=== PATIENT | male | born 1955 | race Caucasian/White ===

== ENCOUNTER 2019-05-01 12:55 | Emergency (ER) | payer MEDICARE, MEDICAID ==
[2019-05-01 14:15] VITALS: BP 131/89
[2019-05-01 14:48] LABS: ANION GAP 12.7; CHLORIDE,CL 107 mmol/L (101-111); SODIUM,NA 138 mmol/L (135-145)
--- NOTE | 2019-05-01 16:06 | EDM.PDOC ---
"Scribed by Ne Coleman 05/01/19 [id number] for Todd Porter MD ED HPI GENERAL MEDICAL PROBLEM - General Chief Complaint: Neurological Problem Stated Complaint: SEIZURES? Time Seen by Provider: 05/01/19 14:09 Source of Information: Reports: Patient, RN, RN Notes Reviewed History Limitations: Reports: No Limitations - History of Present Illness INITIAL COMMENTS - FREE TEXT/NARRATIVE: Patient presented to ER by POV from a Long Term with complaint of possible seizure activity witnessed by care staff during meal. Patient not able to provide history. Staff reports that the patient suddenly became rigid and pale, covered in sweat and his eyes rolled back in his head for several seconds. It is unclear if the pt lost consciousness or not during the episode. Following the episode they found the patient somnolent with decreased level of activity. Denied any choking or aspiration of food. Patient has no history of seizure. Denies fever, chills, cough or any other symptoms. Onset: Today Duration: Resolved Prior to Arrival Severity: Moderate Improves with: Reports: None Worsens with: Reports: None Associated Symptoms: Reports: No Other Symptoms - Related Data Allergies Allergy/AdvReac Type Severity Reaction Status Date / Time No Known Allergies Allergy Verified 05/01/19 14:10 Home Meds: Home Meds Acetaminophen [Tylenol] 650 mg PO Q4H PRN #0 tablet 04/10/16 [Rx] Albuterol Sulfate 0.63 mg IH PRN 05/01/19 [History] Albuterol/Ipratropium [DuoNeb 3.0-0.5 MG/3 ML] 3 ml NEB TID 05/01/19 [History] Budesonide [Pulmicort] 0.5 mg NEB BID 05/01/19 [History] Fexofenadine [Keiry] 60 mg PO DAILY 05/01/19 [History] Linaclotide [Linzess] 290 mcg PO DAILY 05/01/19 [History] Losartan [Cozaar] 50 mg PO DAILY 05/01/19 [History] Metoprolol Tartrate 25 mg PO BID 05/01/19 [History] Omeprazole 20 mg PO DAILY 05/01/19 [History] Oxymetazoline HCl [Nasal [place]] 1 spray NS DAILY 05/01/19 [History] Potassium Chloride 40 meq PO DAILY 05/01/19 [History] Pregabalin [Lyrica] 150 mg PO BID 05/01/19 [History] Sennosides/Docusate Sodium [Senna-S] 1 tab PO BID 05/01/19 [History] Sertraline [Zoloft] 25 mg PO BEDTIME 05/01/19 [History] Simethicone 80 mg PO QID 05/01/19 [History] Past Medical History Other HEENT History: wears glasses Cardiovascular History: Reports: Hypertension Other Cardiovascular History: heart turned in chest Respiratory History: Reports: Other (See Below) Other Respiratory History: pneumonia Gastrointestinal History: Reports: Chronic Constipation, GERD, Other (See Below) Other Gastrointestinal History: Mg colon Other Genitourinary History: urinary retention Other Neuro History: moderate mental handicap Psychiatric History: Reports: Schizophrenia - Past Surgical History Musculoskeletal Surgical History: Reports: Other (See Below) Social & Family History - Family History Family Medical History: Unobtainable ED ROS GENERAL - Review of Systems Review Of Systems: ROS reveals no pertinent complaints other than HPI. ED EXAM, GENERAL - Physical Exam Exam: See Below Exam Limited By: Physical Impairment General Appearance: Alert, No Apparent Distress Eye Exam: Right Eye: Abnormal EOM (chronic/stable) Ears: Normal External Exam, Normal Canal, Hearing Grossly Normal, Normal TMs Nose: Normal Inspection, Normal Mucosa, No Blood Throat/Mouth: Normal Inspection, Normal Lips, Normal Teeth, Normal Gums, Normal Oropharynx, Normal Voice, No Airway Compromise, Other (No evidence of tongue biting) Head: Atraumatic, Normocephalic Neck: Normal Inspection, Supple, Non-Tender, Full Range of Motion Respiratory/Chest: No Respiratory Distress, Lungs Clear, No Accessory Muscle Use , Chest Non-Tender, Decreased Breath Sounds. No: Crackles, Rales, Rhonchi, Wheezing, Stridor Cardiovascular: Regular Rate, Rhythm, No Edema GI/Abdominal: Normal Bowel Sounds, Soft, Non-Tender, No Distention (Male) Exam: Deferred Rectal (Males) Exam: Deferred Back Exam: Normal Inspection Extremities: Normal Inspection, Normal Range of Motion, Non-Tender, Normal Capillary Refill, No Pedal Edema Neurological: Alert, No Motor/Sensory Deficits, Other (at baseline per caregiver , and consistent with old records) Psychiatric: Normal Affect, Normal Mood Skin Exam: Warm, Dry, Intact, Normal Color, No Rash Course - Vital Signs Last Recorded V/S: Last Vital Signs Temp 97.3 F 05/01/19 13:30 Pulse 74 05/01/19 13:30 Resp 20 05/01/19 13:30 BP 131/89 05/01/19 13:30 Pulse Ox 96 05/01/19 13:30 - Orders/Labs/Meds Orders: Active Orders 24 hr Category Date Time Status Chest 1V Frontal [CR] Stat Exams 05/01/19 14:37 Taken Labs: Laboratory Tests 05/01/19 05/01/19 05/01/19 Range/Units 14:23 14:23 15:43 WBC 7.1 (5.0-10.0) 10^3/uL RBC 4.95 (4.6-6.2) 10^6/uL Hgb 15.4 D (14.0-18.0) g/dL Hct 45.1 (40.0-54.0) % MCV 91.1 (80-100) fL MCH 31.1 (27.0-34.0) pg MCHC 34.1 (33.0-35.0) g/dL Plt Count 190 (150-450) 10^3/uL Neut % (Auto) 64.8 (42.2-75.2) % Lymph % (Auto) 19.9 L (20.5-50.1) % Bland % (Auto) 10.1 H (2-8) % Eos % (Auto) 4.8 H (1.0-3.0) % Baso % (Auto) 0.4 (0.0-1.0) % Sodium 138 (135-145) mmol/L Potassium 4.7 (3.6-5.0) mmol/L Chloride 107 (101-111) mmol/L Carbon Dioxide 23.0 (21.0-31.0) mmol/L Anion Gap 12.7 BUN 25 H (7-18) mg/dL Creatinine 1.1 (0.6-1.3) mg/dL Est Cr Clr Drug Dosing 72.39 mL/min Estimated GFR (MDRD) > 60 BUN/Creatinine Ratio 22.72 Glucose 83 (74-105) mg/dL Calcium 8.8 (8.4-10.2) mg/dl Magnesium 2.0 (1.8-2.5) mg/dL Total Bilirubin 0.5 (0.2-1.0) mg/dL AST 18 (10-42) IU/L ALT 16 (10-60) IU/L Alkaline Phosphatase 106 (42-121) IU/L Lactate Dehydrogenase 113 (91-180) IU/L Creatine Kinase 49 (26-174) IU/L Total Protein 6.8 (6.7-8.2) g/dl Albumin 3.8 (3.2-5.5) g/dl Globulin 3.0 Albumin/Globulin Ratio 1.27 Urine Color Yellow (YELLOW) Urine Appearance Clear (CLEAR) Urine pH 5.5 (5.0-9.0) Ur Specific [place] 1.020 (1.005-1.030) Urine Protein Negative (NEGATIVE) Urine Glucose (UA) Negative (NEGATIVE) Urine Ketones Negative (NEGATIVE) Urine Occult Blood Negative (NEGATIVE) Urine Nitrite Negative (NEGATIVE) Urine Bilirubin Negative (NEGATIVE) Urine Urobilinogen 0.2 (0.2-1.0) mg/dL Ur Leukocyte Esterase Negative (NEGATIVE) - Radiology Interpretation Free Text/Narrative:: [facility] Final Radiology Report Call: [phone] assistance Online chat: [email or web address] Name: FIORELLA MCCARTNEY Age: 63Years M Date: 05/01/2019 SSN: -- : 1955 Study: XR CHEST 1 VIEW FRONTAL Requesting Physician: TODD PORTER Images: 1 Addl Studies: Provided Clinical History: Contrast: Contrast Medium: Contrast Amount: Contrast Method: Page 1 of 2 EXAM: XR Chest, 1 View EXAM DATE/TIME: 05/01/2019 2:48 PM CLINICAL HISTORY: 63 years old, male; Signs and symptoms; Cough and other: Chronic dysphagia, poss aspiration TECHNIQUE: Imaging protocol: XR of the chest, 1 view. COMPARISON: No relevant prior studies available. FINDINGS: Lungs: Increased interstitial lung markings suggesting edema, infection or fibrotic changes. Pleural space: Unremarkable. No pleural effusion. No pneumothorax. Heart/Mediastinum: Cardiomegaly Diaphragm: Elevation of the right hemidiaphragm with dilated loops of bowel. Bones/joints: Unremarkable. IMPRESSION: 1. Elevation of the right hemidiaphragm with dilated loops of large bowel. Consider dedicated exam of the abdomen. 2. Increased interstitial lung markings suggesting edema, infection or fibrotic changes. 3. Cardiomegaly Thank you for allowing us to participate in the care of your patient. FIORELLA MCCARTNEY | Final Radiology Report CONFIDENTIALITY STATEMENT This report is intended only for use by the referring physician, and only in accordance with law. If you received this in error, call [phone]. Page 2 of 2 Dictated and Authenticated by: Billy Conn MD 05/01/2019 3:35 PM Central Time ([place] & [place]) *Abnormal abd. findings above are unchanged in comparison to [address] abd/ pelvis and were noted as chronic in 2016 as well. Pt has no abdominal complaints or symptoms. Departure - Departure Time of Disposition: 16:01 Disposition: Home, Self-Care 01 Condition: Good Clinical Impression: Tonic seizure - Discharge Information *PRESCRIPTION DRUG MONITORING PROGRAM REVIEWED*: No *COPY OF PRESCRIPTION DRUG MONITORING REPORT IN PATIENT SUSU: No Instructions: Coping With Non-Epileptic Seizures Referrals: PCP,None [Primary Care Provider] - Forms: ED Department Discharge Additional Instructions: Follow up in clinic with your primary doctor this week. Seizure precautions at the retirement until further evaluation. - My Orders Last 24 Hours: My Active Orders 05/01/19 14:37 Chest 1V Frontal [CR] Stat - Assessment/Plan Last 24 Hours: My Active Orders 05/01/19 14:37 Chest 1V Frontal [CR] Stat I have read and agree with the documentation that has been completed regarding this visit. By signing this record, I attest that the documentation was completed in my physical presence and is an accurate record of the encounter."
== END 2019-05-01 16:11 | disposition home or self-care (01) ==
LOC: DL.ED 12:55
DX: G40.409 Other generalized epilepsy and epileptic syndromes, not intractable, without status epilepticus (principal); I10 Essential (primary) hypertension; K21.9 Gastro-esophageal reflux disease without esophagitis; Z79.899 Other long term (current) drug therapy
CPT/HCPCS: 36415; 71045; 80053; 81003; 82550; 83615; 83735; 85025; 99285-25

== ENCOUNTER 2019-10-25 07:45 | Emergency (ER) | payer MEDICARE, MEDICAID ==
--- NOTE | 2019-10-25 07:56 | EDM.PDOC ---
ED HPI GENERAL MEDICAL PROBLEM - General Chief Complaint: General Stated Complaint: FELL Time Seen by Provider: 10/25/19 07:55 Source of Information: Reports: Patient, Family, Old Records, RN, RN Notes Reviewed History Limitations: Reports: No Limitations - History of Present Illness INITIAL COMMENTS - FREE TEXT/NARRATIVE: Pt presents to ER by POV with report that he fell in his room to the floor and hit his face. Pt has c/o an abrasion to the forehead, and nose with laceration. Denies LOC, neck pain, or any other injury. Pt does not take any blood thinners or aspirin. Last Tetanus Vaccine was 2017. Onset: Sudden Duration: Constant Location: Reports: Face Quality: Reports: Ache Severity: Moderate Improves with: Reports: None Worsens with: Reports: None Associated Symptoms: Reports: No Other Symptoms - Related Data Allergies Allergy/AdvReac Type Severity Reaction Status Date / Time No Known Allergies Allergy Verified 10/10/19 18:06 Home Meds: Home Meds Acetaminophen [Tylenol] 650 mg PO Q4H PRN #0 tablet 04/10/16 [Rx] Albuterol Sulfate 0.63 mg IH .PRN PRN 05/01/19 [History] Albuterol/Ipratropium [DuoNeb 3.0-0.5 MG/3 ML] 3 ml NEB TID 05/01/19 [History] Budesonide [Pulmicort] 0.5 mg NEB BID 05/01/19 [History] Fexofenadine [Keiry] 60 mg PO DAILY 05/01/19 [History] Linaclotide [Linzess] 290 mg PO DAILY 05/01/19 [History] Losartan [Cozaar] 25 mg PO DAILY 05/01/19 [History] Metoprolol Tartrate 25 mg PO BID 05/01/19 [History] Omeprazole 20 mg PO DAILY 05/01/19 [History] Oxymetazoline HCl [Nasal [place]] 1 spray NS DAILY 05/01/19 [History] Potassium Chloride 40 meq PO DAILY 05/01/19 [History] Pregabalin [Lyrica] 300 mg PO BID 05/01/19 [History] Sennosides/Docusate Sodium [Senna-S] 1 tab PO BID 05/01/19 [History] Sertraline [Zoloft] 25 mg PO BEDTIME 05/01/19 [History] Simethicone 80 mg PO QID 05/01/19 [History] Nystatin [Nystatin Crm] 1 applic TOP DAILY PRN 10/10/19 [History] Propylene Glycol/PEG 400/Pf [Systane Ultra 0.4-0.3% Eye Drp] 1 each EYEBOTH BID 10/10/19 [History] QUEtiapine [SEROquel] 50 mg PO BID 10/10/19 [History] Past Medical History HEENT History: Reports: Impaired Vision Other HEENT History: wears glasses Cardiovascular History: Reports: Hypertension Other Cardiovascular History: heart turned in chest Respiratory History: Reports: Other (See Below) Other Respiratory History: pneumonia Gastrointestinal History: Reports: Chronic Constipation, GERD, Other (See Below) Other Gastrointestinal History: Mg colon Other Genitourinary History: urinary retention Other Neuro History: moderate mental handicap Psychiatric History: Reports: Schizophrenia Endocrine/Metabolic History: Reports: None Hematologic History: Reports: None Immunologic History: Reports: None Oncologic (Cancer) History: Reports: None Dermatologic History: Reports: None Other Dermatologic History: mottling to left leg, some mottling normal for him - Infectious Disease History Infectious Disease History: Reports: None - Past Surgical History Musculoskeletal Surgical History: Reports: Other (See Below) Social & Family History - Family History Family Medical History: Unobtainable - Tobacco Use Smoking Status *Q: Former Smoker - Caffeine Use Caffeine Use: Reports: Coffee, Soda, Tea - Living Situation & Occupation Living situation: Reports: Single, Assisted Living Occupation: Disabled ED ROS GENERAL - Review of Systems Review Of Systems: Comprehensive ROS is negative, except as noted in HPI. ED EXAM, GENERAL - Physical Exam Exam: See Below Exam Limited By: No Limitations General Appearance: Alert, No Apparent Distress, Thin, Other (Chronically ill appearing) Eye Exam: Bilateral Eye: EOMI, Normal Inspection, PERRL Ears: Normal External Exam, Hearing Grossly Normal Nose: Nasal Tenderness, Other (Nose abrasion/lac. with mild epistaxis, deformity (unknown if old or acute).) Throat/Mouth: Normal Inspection, Normal Lips, Normal Teeth, Normal Gums, Normal Oropharynx, Normal Voice, No Airway Compromise Head: Atraumatic, Normocephalic Neck: Normal Inspection, Supple, Non-Tender, Full Range of Motion Respiratory/Chest: No Respiratory Distress, Lungs Clear, No Accessory Muscle Use , Chest Non-Tender, Decreased Breath Sounds Cardiovascular: Normal Peripheral Pulses, Regular Rate, Rhythm, No Edema GI/Abdominal: Normal Bowel Sounds, Soft, Non-Tender, No Organomegaly, No Distention, No Abnormal Bruit, No Mass Back Exam: Normal Inspection, Full Range of Motion Extremities: Normal Inspection, Normal Range of Motion, Non-Tender, Normal Capillary Refill, No Pedal Edema Neurological: Alert, Other (Chronic dystonia with no acute neuro. deficits.) Psychiatric: Normal Mood Skin Exam: Warm, Dry, Normal Color Course - Vital Signs Last Recorded V/S: Last Vital Signs Temp 96.6 F 10/25/19 07:52 Pulse 57 L 10/25/19 07:52 Resp 16 10/25/19 07:52 BP 91/66 10/25/19 07:52 Pulse Ox 96 10/25/19 07:52 - Orders/Labs/Meds Orders: Active Orders 24 hr Category Date Time Status Max Facial Sinus wo Cont [CT] Stat Exams 10/25/19 08:09 Taken Steri Strips Application [OM.PC] Routine Oth 10/25/19 08:15 Ordered Meds: Medications Discontinued Medications Generic Name Dose Route Start Last Admin Trade Name Freq PRN Reason Stop Dose Admin Amoxicillin/Clavulanate Potassium 1 tab 10/25/19 08:16 10/25/19 08:27 Augmentin 875 Mg/125 Mg PO 10/25/19 08:17 1 tab ONETIME ONE Administration Oxymetazoline HCl 1 ml 10/25/19 08:17 10/25/19 08:27 Afrin Original 0.05% Nasal [place] ANGELO 10/25/19 08:18 1 ml ONETIME ONE Administration - Radiology Interpretation Free Text/Narrative:: CT Max/Facial: Comminuted displaced nasal bone fracture with Rt lat. sinus wall involvement per Rad. report. - Re-Assessments/Exams Free Text/Narrative Re-Assessment/Exam: 10/25/19 08:29 Nose abrasion/lac. cleansed and steri-strips applied by RN. ENT consulted via [facility] One Call, CT image pushed to [facility] PACs. Pt given phone number to [facility] for f/u. Departure - Departure Time of Disposition: 08:44 Disposition: Home, Self-Care 01 Condition: Fair Clinical Impression: Nasal bone fractures Qualifiers: Encounter type: initial encounter Fracture type: open Qualified Code(s): S02.2XXB - Fracture of nasal bones, initial encounter for open fracture Fall as cause of accidental injury at home as place of occurrence Qualifiers: Encounter type: initial encounter Qualified Code(s): W19.XXXA - Unspecified fall, initial encounter; Y92.009 - Unspecified place in unspecified non- institutional (private) residence as the place of occurrence of the external cause Laceration of nose Qualifiers: Encounter type: initial encounter Qualified Code(s): S01.21XA - Laceration without foreign body of nose, initial encounter - Discharge Information *PRESCRIPTION DRUG MONITORING PROGRAM REVIEWED*: No *COPY OF PRESCRIPTION DRUG MONITORING REPORT IN PATIENT SUSU: No Instructions: Nasal Fracture, Sterile Tape Wound Care Forms: ED Department Discharge Additional Instructions: Rx: Augmentin 875mg Rx: Zofran 4mg Do not wipe, blow, rub, pick, or scratch at nose for the next 10 days. Call [phone] today to schedule an appointment with at the [facility] for evaluation and treatment of your nose fracture. - My Orders Last 24 Hours: My Active Orders 10/25/19 08:09 Max Facial Sinus wo Cont [CT] Stat 10/25/19 08:15 Steri Strips Application [OM.PC] Routine - Assessment/Plan Last 24 Hours: My Active Orders 10/25/19 08:09 Max Facial Sinus wo Cont [CT] Stat 10/25/19 08:15 Steri Strips Application [OM.PC] Routine
[2019-10-25 07:57] VITALS: BP 91/66; PULSE 57
[2019-10-25] MEDS ORDERED: Amoxicillin/Clavulanate K 875-125 MG Tab PO ONE (08:16)
[2019-10-25] MEDS ORDERED: Oxymetazoline 0.05% Nasal Spray 15 ML Bottle NAS ONE (08:17)
--- NOTE | 2019-10-25 08:56 | CT ---
EXAMINATION: Max Facial Sinus wo Cont SEX: Male AGE: 64 years CLINICAL HISTORY: 64-year-old male with clinical "dystonia" who fell out of bed injuring his face. (nose injury) Scan technique: Volume acquisition of data emergency unenhanced CT scan of the facial bones obtained with the patient lying supine on the Siemens multislice scanner [place], [place]. All data archived in the PACS system for storage, reformatting axial/sagittal/coronal planes and study (bone/soft tissue windows). Interpretation: 1. Badly comminuted fracture nasal bones with marked deviation to the left of midline. (Adjacent subcutaneous emphysema) 2. Irregular nasal septum, asymmetric swelling nasal turbinates on the right with soft tissue that extends through the medial wall of the right maxillary sinus (ipsilateral dependent air-fluid level). No frontal bone fracture or intracranial air. No orbital fractures and the anterior maxillary spine is intact. No retrobulbar hematoma or ocular muscle entrapment. 3. Edentulous patient. TMJs unremarkable. 4. Frontal, sphenoid, left ethmoid and maxillary sinuses clear. Symmetric pneumatization of the mastoid sinuses. 5. No foreign bodies. 6. No basal skull fractures. 7. No fracture or dislocation first 3 cervical vertebra. 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 CONCLUSION: Abnormal. Comminuted nasal bone fractures.
== END 2019-10-25 08:58 | disposition home or self-care (01) ==
LOC: DL.ED 07:45
DX: S02.2XXB Fracture of nasal bones, initial encounter for open fracture (principal); S01.21XA Laceration without foreign body of nose, initial encounter; I10 Essential (primary) hypertension; K21.9 Gastro-esophageal reflux disease without esophagitis; Z87.891 Personal history of nicotine dependence; Z79.899 Other long term (current) drug therapy; W01.10XA Fall on same level from slipping, tripping and stumbling with subsequent striking against unspecified object, initial encounter; Y92.009 Unspecified place in unspecified non-institutional (private) residence as the place of occurrence of the external cause
CPT/HCPCS: 70486; 99283; A9270

== ENCOUNTER 2020-11-24 11:48 | Emergency (ER) | payer MEDICARE, MEDICAID | END 2020-11-24 11:50 | disposition left against medical advice (07) | LOC: DL.ED 11:48 | DX: Z53.21 Procedure and treatment not carried out due to patient leaving prior to being seen by health care provider (principal) ==

== ENCOUNTER 2020-11-28 09:02 | Emergency (ER) | payer MEDICARE, MEDICAID ==
--- NOTE | 2020-11-28 09:05 | EDM.PDOC ---
<Jareth Porter - Last Filed: 11/28/20 09:04> ED HPI GENERAL MEDICAL PROBLEM - General Chief Complaint: Respiratory Problem Stated Complaint: AMBULANCE Time Seen by Provider: 11/28/20 09:04 Source of Information: Reports: Patient, Shelter Records, Old Records, RN History Limitations: Reports: No Limitations - Related Data Allergies Allergy/AdvReac Type Severity Reaction Status Date / Time No Known Allergies Allergy Verified 11/28/20 09:07 Home Meds: Home Meds Acetaminophen [Tylenol] 650 mg PO Q4H PRN #0 tablet 04/10/16 [Rx] Albuterol Sulfate 0.63 mg IH .PRN PRN 05/01/19 [History] Albuterol/Ipratropium [DuoNeb 3.0-0.5 MG/3 ML] 3 ml NEB TID 05/01/19 [History] Budesonide [Pulmicort] 0.5 mg NEB BID 05/01/19 [History] Fexofenadine [Keiry] 60 mg PO DAILY 05/01/19 [History] Linaclotide [Linzess] 290 mg PO DAILY 05/01/19 [History] Losartan [Cozaar] 25 mg PO DAILY 05/01/19 [History] Metoprolol Tartrate 25 mg PO BID 05/01/19 [History] Omeprazole 20 mg PO DAILY 05/01/19 [History] Oxymetazoline HCl [Nasal [place]] 1 spray NS DAILY 05/01/19 [History] Potassium Chloride 40 meq PO DAILY 05/01/19 [History] Pregabalin [Lyrica] 300 mg PO BID 05/01/19 [History] Sennosides/Docusate Sodium [Senna-S] 1 tab PO BID 05/01/19 [History] Sertraline [Zoloft] 25 mg PO BEDTIME 05/01/19 [History] Simethicone 80 mg PO QID 05/01/19 [History] Nystatin [Nystatin Crm] 1 applic TOP DAILY PRN 10/10/19 [History] Propylene Glycol/PEG 400/Pf [Systane Ultra 0.4-0.3% Eye Drp] 1 each EYEBOTH BID 10/10/19 [History] QUEtiapine [SEROquel] 50 mg PO BID 11/18/19 [History] Past Medical History HEENT History: Reports: Impaired Vision Other HEENT History: wears glasses Cardiovascular History: Reports: Hypertension Other Cardiovascular History: heart turned in chest Respiratory History: Reports: Other (See Below) Other Respiratory History: pneumonia Gastrointestinal History: Reports: Chronic Constipation, GERD, Other (See Below) Other Gastrointestinal History: Aleyda colon Other Genitourinary History: urinary retention Other Neuro History: moderate mental handicap Psychiatric History: Reports: Schizophrenia Endocrine/Metabolic History: Reports: None Hematologic History: Reports: None Immunologic History: Reports: None Oncologic (Cancer) History: Reports: None Dermatologic History: Reports: None Other Dermatologic History: mottling to left leg, some mottling normal for him - Infectious Disease History Infectious Disease History: Reports: None - Past Surgical History Musculoskeletal Surgical History: Reports: Other (See Below) Social & Family History - Family History Family Medical History: Unobtainable - Caffeine Use Caffeine Use: Reports: Coffee, Soda, Tea - Living Situation & Occupation Living situation: Reports: Single, Assisted Living Occupation: Disabled Departure - Departure Disposition: DC/Tfer to [facility] Clinical Impression: Hypoxia, Pneumonia due to COVID-19 virus, Fecal impaction, Dilatation of colon - Discharge Information Forms: ED Department Discharge, Interfacility Transfer BAR <Elis Anna - Last Filed: 11/28/20 13:59> ED HPI GENERAL MEDICAL PROBLEM - History of Present Illness INITIAL COMMENTS - FREE TEXT/NARRATIVE: Patient presents to the ED via EMS for episodes of apnea, per his assisted staff. The assisted RN reports he experienced three episodes of 45 second apnea for which he required sternal rub to return to normal breathing. The patient does have a history of muscular dystrophy and requires 2L of O2 via NC at baseline, but these apneic episodes are not normal for him. The assisted RN reports the patient was diagnosed with a COVID infection on 11/22/20 per routine testing at the home. The patient denies fever, shaking chills, headache, chest pain, palpitations, nausea, vomiting, melena, or hematochezia. He does attest to shortness of breath and diarrhea, although he does state the diarrhea is chronic. He denies tobacco, alcohol, or recreational drug use. ED ROS GENERAL - Review of Systems Review Of Systems: Comprehensive ROS is negative, except as noted in HPI. ED EXAM, GENERAL - Physical Exam Exam: See Below Exam Limited By: Language Barrier (Hx of muscular dystrophy) General Appearance: Alert, Mild Distress Eye Exam: Bilateral Eye: EOMI, Normal Inspection, PERRL (4mm) Ears: Normal External Exam, Hearing Grossly Normal Nose: Normal Inspection, Normal Mucosa. No: Nasal Tenderness, Nasal Swelling Throat/Mouth: No Airway Compromise. No: Normal Oropharynx (Dry mucous membranes), Normal Voice (Garbled speech) Head: Atraumatic, Normocephalic Neck: Normal Inspection, Supple, Non-Tender. No: Lymphadenopathy (L), Lymphadenopathy (R) Respiratory/Chest: Crackles (To all lobes), Rhonchi (To all lobes), Accessory Muscle Use. No: Chest Non-Tender Cardiovascular: Regular Rate, Rhythm, No Edema, No Gallop, No JVD, No Murmur, No Rub Peripheral Pulses: 2+: Radial (L), Radial (R), Dorsalis Pedis (L), Dorsalis Pedis (R) GI/Abdominal: Non-Tender, Distended, Abnormal Bowel Sounds (Hyperactive sounds to right upper quadrant). No: Guarding, Rigid, Rebound (Male) Exam: Deferred Rectal (Males) Exam: Deferred Back Exam: Normal Inspection, Full Range of Motion. No: CVA Tenderness (L), CVA Tenderness (R) Extremities: Non-Tender, No Pedal Edema, Normal Capillary Refill, Limited Range of Motion Neurological: Alert, Oriented, CN II-XII Intact, Normal Cognition, Slow to Respond, Abnormal Reflexes, Sensory/Motor Deficit (History of muscular dystrophy). No: Normal Gait, Memory Loss Remote Events, Memory Loss Recent Events Psychiatric: Normal Mood, Flat Affect Skin Exam: Warm, Dry, Intact, Normal Color, No Rash. No: Ecchymosis, Erythema, Jaundice, Mottled, Pallor, Petechiae Course - Vital Signs Last Recorded V/S: Last Vital Signs Temp 96.9 F 11/28/20 12:03 Pulse 80 11/28/20 12:03 Resp 20 11/28/20 12:03 BP 88/66 L 11/28/20 12:03 Pulse Ox 93 L 11/28/20 12:03 - Orders/Labs/Meds Orders: Active Orders 24 hr Category Date Time Status CULTURE BLOOD [BC] Stat Lab 11/28/20 09:23 Received Labs: Laboratory Tests 11/28/20 11/28/20 11/28/20 Range/Units 09:28 09:28 09:28 WBC 3.5 L (5.0-10.0) 10^3/uL RBC 5.08 (4.6-6.2) 10^6/uL Hgb 15.6 (14.0-18.0) g/dL Hct 45.1 (40.0-54.0) % MCV 88.8 D (80-100) fL MCH 30.7 (27.0-34.0) pg MCHC 34.6 (33.0-35.0) g/dL Plt Count 97 L D (150-450) 10^3/uL Neut % (Auto) 71.2 (42.2-75.2) % Lymph % (Auto) 18.2 L (20.5-50.1) % [place] % (Auto) 9.7 H (2-8) % Eos % (Auto) 0.6 L (1.0-3.0) % Baso % (Auto) 0.3 (0.0-1.0) % PT 11.0 (9.0-12.0) SEC INR 1.2 (0.9-1.2) APTT 33.2 (22.0-34.0) SEC D-Dimer, Quantitative 344 (0-400) ng/mL Sodium 142 (136-145) mmol/L Potassium 3.6 (3.5-5.1) mmol/L Chloride 105 (98-107) mmol/L Carbon Dioxide 24 (21-32) mmol/L Anion Gap 16.6 H (7-13) mEq/L BUN 21 H (7-18) mg/dL Creatinine 1.38 H (0.70-1.30) mg/dL Est Cr Clr Drug Dosing 53.01 mL/min Estimated GFR (MDRD) 52 BUN/Creatinine Ratio 15.2 (No establ ref range) Glucose 129 H (74-99) mg/dL Lactic Acid (0.4-2.0) mmol/L Calcium 8.3 L (8.5-10.1) mg/dL Ferritin (26-388) mg/mL Total Bilirubin 0.3 (0.2-1.0) mg/dL AST 54 H (15-37) U/L ALT 46 (16-63) U/L Alkaline Phosphatase 97 (46-116) U/L Lactate Dehydrogenase 284 H (85-227) U/L Creatine Kinase 119 (39-308) U/L Troponin I 0.025 (0.000-0.056) ng/mL C-Reactive Protein 5.5 H (0.0-0.9) mg/dL B-Natriuretic Peptide 12 (0-100) pg/ml Total Protein 7.1 (6.4-8.2) g/dL Albumin 3.5 (3.4-5.0) g/dL Globulin 3.6 Albumin/Globulin Ratio 1.0 11/28/20 11/28/20 Range/Units 09:28 09:28 WBC (5.0-10.0) 10^3/uL RBC (4.6-6.2) 10^6/uL Hgb (14.0-18.0) g/dL Hct (40.0-54.0) % MCV (80-100) fL MCH (27.0-34.0) pg MCHC (33.0-35.0) g/dL Plt Count (150-450) 10^3/uL Neut % (Auto) (42.2-75.2) % Lymph % (Auto) (20.5-50.1) % [place] % (Auto) (2-8) % Eos % (Auto) (1.0-3.0) % Baso % (Auto) (0.0-1.0) % PT (9.0-12.0) SEC INR (0.9-1.2) APTT (22.0-34.0) SEC D-Dimer, Quantitative (0-400) ng/mL Sodium (136-145) mmol/L Potassium (3.5-5.1) mmol/L Chloride (98-107) mmol/L Carbon Dioxide (21-32) mmol/L Anion Gap (7-13) mEq/L BUN (7-18) mg/dL Creatinine (0.70-1.30) mg/dL Est Cr Clr Drug Dosing mL/min Estimated GFR (MDRD) BUN/Creatinine Ratio (No establ ref range) Glucose (74-99) mg/dL Lactic Acid 1.1 (0.4-2.0) mmol/L Calcium (8.5-10.1) mg/dL Ferritin 566 H (26-388) mg/mL Total Bilirubin (0.2-1.0) mg/dL AST (15-37) U/L ALT (16-63) U/L Alkaline Phosphatase (46-116) U/L Lactate Dehydrogenase (85-227) U/L Creatine Kinase (39-308) U/L Troponin I (0.000-0.056) ng/mL C-Reactive Protein (0.0-0.9) mg/dL B-Natriuretic Peptide (0-100) pg/ml Total Protein (6.4-8.2) g/dL Albumin (3.4-5.0) g/dL Globulin Albumin/Globulin Ratio Meds: Medications Discontinued Medications Generic Name Dose Route Start Last Admin Trade Name Freq PRN Reason Stop Dose Admin Dexamethasone 6 mg 11/28/20 09:06 11/28/20 10:07 Decadron IVPUSH 11/28/20 09:07 6 mg ONETIME ONE Administration - Re-Assessments/Exams Free Text/Narrative Re-Assessment/Exam: 11/28/20 CT chest/abdomen/pelvis revealed pneumonitis and fecal impaction with 10cm dilation of rectosigmoid colon. Patient has a history of megacolon on previous CT. CBC unremarkable for acute bacterial infection. Patient requiring 10L of O2 via mask to keep O2 greater than 92%. Case discussed with Dr. Esparza who stated he would like to have patient transferred as aleyda colon could not be excluded given fecal impaction. Case discussed with Dr. Leahy at [facility] in [place] who agreed to accept the patient for transfer for admission. Discussed transfer with patient who verbalized agreement and understanding to plan of care. Discussed transfer with Abisai assisted RN, and Alejandro, patient's guardian. Departure - Departure Time of Disposition: 12:57 Condition: Good Sepsis Event Note (ED) - Focused Exam Vital Signs: Vital Signs Temp Pulse Resp BP Pulse Ox 11/28/20 12:03 96.9 F 80 20 88/66 L 93 L 11/28/20 09:21 97.6 F 80 20 103/69 92 L
[2020-11-28] MEDS ORDERED: Dexamethasone 4 MG/ML SDV IVPUSH ONE (09:06)
[2020-11-28 09:23] VITALS: PULSE 80
[2020-11-28 09:57] LABS: PTT,PARTIAL THROMBOPLSTIN TIME 33.2 SEC (22.0-34.0)
[2020-11-28 09:59] LABS: ANION GAP 16.6 mEq/L (7-13)
--- NOTE | 2020-11-28 11:49 | CT ---
PROCEDURE INFORMATION: Exam: CT Chest Without Contrast; Diagnostic Exam date and time: 11/28/2020 10:32 AM Age: 65 years old Clinical indication: Other: Covid + dyspnea; Shortness of breath; Additional info: Covid, dyspnea TECHNIQUE: Imaging protocol: Diagnostic computed tomography of the chest without contrast. Radiation optimization: All CT scans at this facility use at least one of these dose optimization techniques: automated exposure control; mA and/or kV adjustment per patient size (includes targeted exams where dose is matched to clinical indication); or iterative reconstruction. COMPARISON: No relevant prior studies available. FINDINGS: Lungs: There is evidence of centrilobular and paraseptal emphysema. Mild background airspace infiltrates with bilateral lower lobe mild pleural base consolidation and atelectasis. The airway is patent. Elevation of the hemidiaphragms and bilateral lung volume loss secondary to advanced colonic the dilatation. Pleural space: Unremarkable. No pneumothorax. No pleural effusion. Heart: Unremarkable. No cardiomegaly. No pericardial effusion. Aorta: Mild atherosclerotic calcification.. No aortic aneurysm. Lymph nodes: Unremarkable. No enlarged lymph nodes. Bones/joints: Unremarkable. No acute fracture. Soft tissues: Unremarkable. IMPRESSION: 1. Patchy airspace infiltrates and basilar consolidations consistent with pneumonitis. Imaging features can be seen with(COVID-19) pneumonia, though are nonspecific and can occur with a variety of infectious and noninfectious processes. 2. Central lobular and paraseptal emphysema. 3. Bilateral lung volume loss secondary to colonic dilatation. PROCEDURE INFORMATION: Exam: CT Abdomen And Pelvis Without Contrast Exam date and time: 11/28/2020 10:32 AM Age: 65 years old Clinical indication: Other: Covid + dyspnea; Shortness of breath; Additional info: Covid, dyspnea TECHNIQUE: Imaging protocol: Computed tomography of the abdomen and pelvis without contrast. Radiation optimization: All CT scans at this facility use at least one of these dose optimization techniques: automated exposure control; mA and/or kV adjustment per patient size (includes targeted exams where dose is matched to clinical indication); or iterative reconstruction. COMPARISON: No relevant prior studies available. FINDINGS: Liver: Normal. No mass. Gallbladder and bile ducts: Normal. No calcified stones. No ductal dilation. Pancreas: Normal. No ductal dilation. Spleen: Normal. No splenomegaly. Adrenal glands: Normal. No mass. Kidneys and ureters: Normal. No hydronephrosis. Stomach and bowel: There is advanced colonic dilatation up to 10 cm with rectosigmoid fecal impaction. Colonic fluid levels. Fluid filled mildly dilated small bowel. No mucosal thickening or abnormalities. No visualized rectal mass. Appendix: No evidence of appendicitis. Intraperitoneal space: Unremarkable. No free air. No significant fluid collection. Vasculature: Aortoiliac atherosclerotic calcification. No abdominal aortic aneurysm. Lymph nodes: Unremarkable. No enlarged lymph nodes. Urinary bladder: Unremarkable as visualized. Reproductive: Unremarkable as visualized. Bones/joints: L3-L4 and L5-S1 moderate to severe degenerative disc disease. L4-L5 moderate moderate midline disc bulge or protrusion. No acute fracture. Soft tissues: Unremarkable. IMPRESSION: 1. Colonic dilatation up to 10 cm secondary to rectosigmoid fecal impaction. After resolution of impaction recommend follow-up to assure resolution of dilatation to exclude toxic megacolon. 2. L3-L4 and L5-S1 advanced degenerative disc disease. L4-L5 questionable midline disc protrusion. Correlate clinically for back pain or radiculopathy.
[2020-11-28 12:04] VITALS: BP 88/66
== END 2020-11-28 13:34 ==
LOC: DL.ED 09:02
DX: J12.82 Pneumonia due to coronavirus disease 2019 (principal); K56.41 Fecal impaction; K59.39 Other megacolon; R09.02 Hypoxemia; I10 Essential (primary) hypertension; K21.9 Gastro-esophageal reflux disease without esophagitis; F20.9 Schizophrenia, unspecified; Z79.899 Other long term (current) drug therapy
CPT/HCPCS: 36415; 71250; 74176; 80053; 82550; 82728; 83605; 83615; 83880; 84484; 85025; 85379; 85610; 85730; 86140; 87040; 96374; 99284; 99285-25; J1100

== ENCOUNTER 2022-11-10 20:00 | Emergency (ER) | payer MEDICARE, MEDICAID ==
[2022-11-10] MEDS ORDERED: Sodium Chloride 0.9% 1,000 ML IV ONE ×2 (20:10→21:00)
[2022-11-10 20:52] LABS: CHLORIDE,CL 101 mmol/L (98-107); SODIUM,NA 142 mmol/L (136-145)
[2022-11-10 20:56] LABS: ESTIMATED GFR 21 mL/min (>=60)
[2022-11-10 20:58] LABS: AMPHETAMINES,URINE NEGATIVE (NEGATIVE); BARBITURATES,URINE NEGATIVE (NEGATIVE); BENZODIAZEPINE,URINE NEGATIVE (NEGATIVE); MDMA (ECSTASY), URINE NEGATIVE (NEGATIVE); METHADONE,URINE NEGATIVE (NEGATIVE); METHAMPHETAMINES,URINE NEGATIVE (NEGATIVE); OPIATES,URINE NEGATIVE (NEGATIVE); OXYCODONE,URINE NEGATIVE (NEGATIVE); PHENCYCLIDINE,URINE NEGATIVE (NEGATIVE); TCA,URINE NEGATIVE (NEGATIVE)
[2022-11-10] MEDS ORDERED: Piperacillin/Tazobactam 2.25 GM in Sodium Chloride 0.9% 50 ML IV ONE (21:02)
[2022-11-10] MEDS ORDERED: Ondansetron 4 MG/2 ML SDV IVPUSH ONE (23:20)
[2022-11-10 23:41] LABS: RESPIRATORY SYNCYTIAL VIR NAA NEGATIVE (NEGATIVE)
[2022-11-10 23:45] LABS: CORONAVIRUS COVID-19 NAA POSITIVE (NEGATIVE)
[2022-11-10 23:51] VITALS: BP 115/88; PULSE 112
[2022-11-11] MEDS ORDERED: Levofloxacin/Dextrose 5%-Water 500 MG in Premix Bag 1 BAG IV ONE (00:29)
[2022-11-11] MEDS ORDERED: Sodium Chloride 0.9% 1,000 ML IV ONE (00:29)
== END 2022-11-11 00:46 ==
LOC: DL.ED 20:00
DX: U07.1 COVID-19 (principal); A41.9 Sepsis, unspecified organism; R65.20 Severe sepsis without septic shock; J18.9 Pneumonia, unspecified organism; K92.2 Gastrointestinal hemorrhage, unspecified; N17.9 Acute kidney failure, unspecified; K56.699 Other intestinal obstruction unspecified as to partial versus complete obstruction; I10 Essential (primary) hypertension; Z88.1 Allergy status to other antibiotic agents; Z79.899 Other long term (current) drug therapy; Z86.16 Personal history of COVID-19
CPT/HCPCS: 0241U; 36415; 51702; 71045; 74176; 80053; 80305; 81003; 83605; 83735; 85025; 87040; 96361; 96365; 96375; 99285; J1956; J2405; J2543; J7030

== ENCOUNTER 2023-01-19 17:48 | Inpatient (IN) | payer MEDICARE, MEDICAID ==
[2023-01-19] MEDS ORDERED: Ketorolac 30 MG/ML SDV IVPUSH PRN (18:18)
[2023-01-19] MEDS ORDERED: Albuterol/Ipratropium 3.0-0.5 MG/3 ML Neb Soln NEB PRN (18:18)
[2023-01-19] MEDS ORDERED: HYDROmorphone 0.5 MG/0.5 ML Syringe IVPUSH PRN (18:18)
[2023-01-19] MEDS ORDERED: Acetaminophen 325 MG Tab PO PRN (18:18)
[2023-01-19] MEDS ORDERED: Sodium Chloride 0.9% 10 ML Syringe FLUSH PRN (18:18)
[2023-01-19] MEDS ORDERED: Metoclopramide 10 MG/2 ML SDV IVPUSH PRN (18:22)
[2023-01-19] MEDS: Metoclopramide 10 MG/2 ML SDV IVPUSH SCH (19:06)
[2023-01-19] MEDS: Dextrose 5%-0.9% NaCl 1,000 ML IV SCH (19:08)
[2023-01-19] MEDS ORDERED: Nystatin Crm 15 GM Tube TOP PRN (20:48)
[2023-01-19] MEDS ORDERED: Metoprolol Tartrate 5 MG/5 ML SDV IVPUSH PRN (20:50)
[2023-01-19] MEDS ORDERED: hydrALAZINE 20 MG/ML SDV IVPUSH PRN (20:50)
[2023-01-19] MEDS ORDERED: QUEtiapine 25 MG Tab PO SCH (21:00)
[2023-01-19] MEDS: Metoprolol Tartrate 25 MG Tab PO SCH (22:35)
[2023-01-19] MEDS: Budesonide 0.5 MG/2 ML Neb Susp NEB SCH (22:35)
[2023-01-19] MEDS: Diclofenac Sodium 1% Gel 100 GM Tube TOP SCH (22:48)
[2023-01-19] MEDS: Sodium Chloride 0.9% 10 ML Syringe FLUSH SCH (23:28)
[2023-01-20] MEDS: Metoclopramide 10 MG/2 ML SDV IVPUSH SCH ×2 (00:49→07:25)
[2023-01-20 07:06] LABS: ANION GAP 12.1 mEq/L (7-13)
[2023-01-20] MEDS ORDERED: Potassium Chloride 20 MEQ in Premix Bag 1 BAG IV ONE ×2 (07:47→15:00)
[2023-01-20] MEDS: Dextrose 5%-0.9% NaCl 1,000 ML IV SCH (08:52)
[2023-01-20] MEDS: Fluticasone NASAL Spray 16 GM Bottle NASBOTH SCH (08:56)
[2023-01-20] MEDS: Metoprolol Tartrate 25 MG Tab PO SCH ×2 (08:57→21:21)
[2023-01-20] MEDS: Budesonide 0.5 MG/2 ML Neb Susp NEB SCH ×2 (08:57→21:26)
[2023-01-20] MEDS ORDERED: Sertraline 50 MG Tab PO SCH (09:00)
[2023-01-20] MEDS: Diclofenac Sodium 1% Gel 100 GM Tube TOP SCH ×4 (09:16→21:27)
[2023-01-20] MEDS ORDERED: Neostigmine Methylsulfate 10 MG/10 ML MDV SUBCUT SCH ×2 (11:15→11:53)
[2023-01-20] MEDS: Sodium Chloride 0.9% 10 ML Syringe FLUSH SCH ×2 (11:36→21:27)
[2023-01-20] MEDS ORDERED: Neostigmine Methylsulfate 10 MG/10 ML MDV IM ONE ×2 (18:00→21:00)
[2023-01-20 19:57] LABS: ANION GAP 12.9 mEq/L (7-13)
[2023-01-20] MEDS ORDERED: Metoclopramide 10 MG/2 ML SDV IVPUSH SCH (21:00)
[2023-01-20] MEDS ORDERED: Dextrose 5% in Water 1,000 ML IV SCH (23:00)
[2023-01-21] MEDS ORDERED: Metoclopramide 10 MG/2 ML SDV IVPUSH ONE (06:00)
[2023-01-21 06:38] LABS: ANION GAP 11.5 mEq/L (7-13)
[2023-01-21] MEDS: Metoprolol Tartrate 25 MG Tab PO SCH ×2 (08:48→10:26)
[2023-01-21] MEDS: Budesonide 0.5 MG/2 ML Neb Susp NEB SCH ×2 (08:50→20:51)
[2023-01-21] MEDS: Diclofenac Sodium 1% Gel 100 GM Tube TOP SCH ×4 (08:53→20:51)
[2023-01-21] MEDS: Fluticasone NASAL Spray 16 GM Bottle NASBOTH SCH (08:53)
[2023-01-21] MEDS: Sodium Chloride 0.9% 10 ML Syringe FLUSH SCH ×2 (11:14→20:50)
[2023-01-22 07:04] LABS: ANION GAP 13.1 mEq/L (7-13)
[2023-01-22] MEDS ORDERED: Potassium Chloride 10 MEQ Tab.ER PO ONE (07:53)
[2023-01-22] MEDS: Diclofenac Sodium 1% Gel 100 GM Tube TOP SCH ×2 (09:03→12:48)
[2023-01-22] MEDS: Fluticasone NASAL Spray 16 GM Bottle NASBOTH SCH (09:03)
[2023-01-22] MEDS: Sodium Chloride 0.9% 10 ML Syringe FLUSH SCH (09:04)
[2023-01-22] MEDS: Budesonide 0.5 MG/2 ML Neb Susp NEB SCH (09:05)
[2023-01-22 13:01] VITALS: BP 116/81; PULSE 90
== END 2023-01-22 13:30 | disposition home or self-care (01) | DRG 390 ==
LOC: DL.MS 17:48
PROVIDERS: ADMIT Internal Medicine; ATTEND Internal Medicine
PROC: 0DH67UZ Insertion of Feeding Device into Stomach, Via Natural or Artificial Opening (ICD-10-PCS; principal; 2023-01-20)
DX: K56.609 Unspecified intestinal obstruction, unspecified as to partial versus complete obstruction (principal); H54.7 Unspecified visual loss; K59.81 Ogilvie syndrome; I10 Essential (primary) hypertension; K21.9 Gastro-esophageal reflux disease without esophagitis; K59.09 Other constipation; R33.9 Retention of urine, unspecified; K56.7 Ileus, unspecified; F20.9 Schizophrenia, unspecified; E87.6 Hypokalemia; F79 Unspecified intellectual disabilities; G62.9 Polyneuropathy, unspecified; F32.A Depression, unspecified; Z86.16 Personal history of COVID-19; Z88.8 Allergy status to other drugs, medicaments and biological substances; Z79.899 Other long term (current) drug therapy
CPT/HCPCS: 36415; 71045; 74018; 80048; 80053; 83605; 83735; 85025; 86140; 99223; 99232; 99233; 99239; A9270-GY; J2710; J2765; J3480; J3490; J7042; J7060

== ENCOUNTER 2023-12-16 11:47 | Inpatient (IN) | payer MEDICARE, MEDICAID ==
[2023-12-16] MEDS ORDERED: Albuterol/Ipratropium 3.0-0.5 MG/3 ML Neb Soln NEB ONE (12:07)
[2023-12-16 12:22] LABS: BASOPHILS PERCENT AUTO 0.2 % (0.0-1.0); EOSINOPHILS PERCENT AUTO 0.8 % (1.0-3.0); HEMATOCRIT 44.3 % (40.0-54.0); HEMOGLOBIN 14.3 g/dL (14.0-18.0); LYMPHOCYTES PERCENT AUTO 6.8 % (20.5-50.1); MEAN CORPUSCULAR HEMOGLOBIN 27.9 pg (27.0-34.0); MEAN CORPUSCULAR HGB CONC 32.3 g/dL (33.0-35.0); MEAN CORPUSCULAR VOLUME 86.4 fL (80-100); NEUTROPHILS PERCENT AUTO 85.2 % (42.2-75.2); PLATELET COUNT,PLT 203 10^3/uL (150-450); RED BLOOD CELL COUNT 5.13 10^6/uL (4.6-6.2); WHITE BLOOD CELL COUNT,WBC 17.8 10^3/uL (5.0-10.0)
[2023-12-16 12:46] LABS: A/G RATIO 0.9; ALBUMIN 3.4 g/dL (3.4-5.0); ANION GAP 14.5 mEq/L (7-13); BILIRUBIN TOTAL 0.5 mg/dL (0.2-1.0); BUN/CREATININE RATIO 21.7 (No establ ref range); CALCIUM 8.9 mg/dL (8.5-10.1); CREATININE 1.2 mg/dL (0.70-1.30); EST CRCL DRUG DOSING (CG) 57.85 mL/min; POTASSIUM,K 4.5 mmol/L (3.5-5.1); PROTEIN TOTAL,TP 7.3 g/dL (6.4-8.2)
[2023-12-16 13:10] LABS: CORONAVIRUS COVID-19 NAA NEGATIVE (NEGATIVE); INFLUENZA A NAA NEGATIVE (NEGATIVE); INFLUENZA B NAA NEGATIVE (NEGATIVE)
[2023-12-16] MEDS ORDERED: Levofloxacin/Dextrose 5%-Water 750 MG in Premix Bag 1 BAG IV ONE (13:11)
[2023-12-16] MEDS ORDERED: hydrALAZINE 20 MG/ML SDV IVPUSH PRN (14:15)
[2023-12-16] MEDS ORDERED: Metoprolol Tartrate 5 MG/5 ML SDV IVPUSH PRN (14:15)
[2023-12-16] MEDS ORDERED: Lactated Ringers 1,500 ML IV ONE (14:16)
[2023-12-16] MEDS ORDERED: Dexamethasone 4 MG/ML SDV IVPUSH ONE ×2 (14:18→21:00)
[2023-12-16] MEDS ORDERED: guaiFENesin/Dextromethorphan 100-10 MG/5 ML Soln 5 ML Cup PO PRN (14:20)
[2023-12-16] MEDS ORDERED: Acetaminophen 325 MG Tab PO PRN (14:22)
[2023-12-16] MEDS ORDERED: Ketorolac 30 MG/ML SDV IVPUSH PRN (14:22)
[2023-12-16] MEDS ORDERED: Polyethylene Glycol 3350 Powder 17 GM Packet PO PRN (14:25)
[2023-12-16] MEDS ORDERED: Sennosides/Docusate Sodium 50-8.6 MG Tab PO PRN (14:25)
[2023-12-16] MEDS ORDERED: Ondansetron 4 MG/2 ML SDV IVPUSH PRN (14:25)
[2023-12-16] MEDS ORDERED: Magnesium Hydroxide 400 MG/5 ML Susp 30 ML Cup PO PRN (14:25)
[2023-12-16] MEDS ORDERED: Albuterol/Ipratropium 3.0-0.5 MG/3 ML Neb Soln NEB PRN ×2 (14:25→16:06)
[2023-12-16 14:27] LABS: LACTIC ACID 1.1 mmol/L (0.4-2.0)
[2023-12-16] MEDS ORDERED: guaiFENesin 600 MG Tab.ER PO ONE ×2 (14:28→17:00)
[2023-12-16] MEDS ORDERED: Piperacillin/Tazobactam 4.5 GM in Sodium Chloride 0.9% 100 ML IV ONE (15:00)
[2023-12-16] MEDS: Albuterol/Ipratropium 3.0-0.5 MG/3 ML Neb Soln NEB SCH ×2 (16:25→17:19)
[2023-12-16] MEDS ORDERED: Benzocaine 20% Topical Spray UD MUCMEM ONE (16:59)
[2023-12-16] MEDS ORDERED: Oxymetazoline 0.05% Nasal Spray 30 ML Bottle NAS ONE (17:23)
[2023-12-16] MEDS ORDERED: Nystatin Crm 15 GM Tube TOP PRN (18:27)
[2023-12-16] MEDS ORDERED: traMADol 50 MG Tab PO PRN (18:32)
[2023-12-16] MEDS ORDERED: Naloxone 2 MG/2 ML Syringe IVPUSH PRN (20:28)
[2023-12-16] MEDS ORDERED: Lactulose Soln 10 GM/15 ML 30 ML UD Cup PO ONE (20:29)
[2023-12-16] MEDS: Sodium Chloride 0.9% 1,000 ML IV SCH (20:30)
[2023-12-16] MEDS: HYDROmorphone 0.5 MG/0.5 ML Syringe IVPUSH PRN (21:00)
[2023-12-16] MEDS ORDERED: Albuterol 0.083% 2.5 MG/3 ML Neb Soln INH SCH (21:00)
[2023-12-16] MEDS: Diclofenac Sodium 1% Gel 100 GM Tube TOP SCH (21:15)
[2023-12-16] MEDS: Piperacillin/Tazobactam 4.5 GM in Sodium Chloride 0.9% 100 ML IV SCH (21:20)
[2023-12-16] MEDS: Saccharomyces Boulardii (Probiotic) 250 MG Cap PO SCH (21:23)
[2023-12-16] MEDS: Pregabalin 75 MG Cap PO SCH (21:24)
[2023-12-16] MEDS: guaiFENesin 600 MG Tab.ER PO SCH (21:24)
[2023-12-16] MEDS: Simethicone 80 MG Tab.Chew PO SCH (21:25)
[2023-12-16] MEDS: Bisacodyl 10 MG Supp RECTAL SCH (21:26)
[2023-12-16] MEDS: Pantoprazole 40 MG Vial IVPUSH SCH (21:27)
[2023-12-16] MEDS: Budesonide 0.5 MG/2 ML Neb Susp INH SCH (21:28)
[2023-12-16] MEDS: Metoclopramide 10 MG/2 ML SDV IVPUSH SCH (21:28)
[2023-12-16] MEDS: Sodium Chloride 0.9% 10 ML Syringe FLUSH SCH (21:28)
[2023-12-17] MEDS: Metoclopramide 10 MG/2 ML SDV IVPUSH SCH ×4 (00:25→17:02)
[2023-12-17] MEDS: Albuterol/Ipratropium 3.0-0.5 MG/3 ML Neb Soln NEB SCH ×3 (00:30→11:04)
[2023-12-17] MEDS: HYDROmorphone 0.5 MG/0.5 ML Syringe IVPUSH PRN (01:00)
[2023-12-17] MEDS: Budesonide 0.5 MG/2 ML Neb Susp INH SCH ×2 (05:22→15:57)
[2023-12-17] MEDS: Piperacillin/Tazobactam 4.5 GM in Sodium Chloride 0.9% 100 ML IV SCH ×3 (05:45→20:49)
[2023-12-17 06:29] LABS: BASOPHILS PERCENT AUTO 0.1 % (0.0-1.0); HEMATOCRIT 40.4 % (40.0-54.0); HEMOGLOBIN 13.1 g/dL (14.0-18.0); LYMPHOCYTES PERCENT AUTO 3.7 % (20.5-50.1); MEAN CORPUSCULAR HEMOGLOBIN 27.9 pg (27.0-34.0); MEAN CORPUSCULAR HGB CONC 32.4 g/dL (33.0-35.0); MEAN CORPUSCULAR VOLUME 86.1 fL (80-100); MONOCYTES PERCENT AUTO 2.7 % (2-8); NEUTROPHILS PERCENT AUTO 93.5 % (42.2-75.2); PLATELET COUNT,PLT 169 10^3/uL (150-450); RED BLOOD CELL COUNT 4.69 10^6/uL (4.6-6.2); WHITE BLOOD CELL COUNT,WBC 11.5 10^3/uL (5.0-10.0)
[2023-12-17 07:06] LABS: ANION GAP 15.6 mEq/L (7-13); BILIRUBIN TOTAL 0.6 mg/dL (0.2-1.0); BUN/CREATININE RATIO 21.7 (No establ ref range); C-REACTIVE PROTEIN 10.45 ng/dL (<=0.50); CALCIUM 8.5 mg/dL (8.5-10.1); CREATININE 1.29 mg/dL (0.70-1.30); EST CRCL DRUG DOSING (CG) 53.81 mL/min; MAGNESIUM 1.9 mg/dL (1.8-2.4); POTASSIUM,K 4.6 mmol/L (3.5-5.1); PROTEIN TOTAL,TP 6.6 g/dL (6.4-8.2)
[2023-12-17 07:17] LABS: A/G RATIO 0.83
[2023-12-17] MEDS: Sodium Chloride 0.9% 1,000 ML IV SCH (07:33)
[2023-12-17] MEDS ORDERED: Dexamethasone 4 MG/ML SDV IVPUSH SCH (09:00)
[2023-12-17] MEDS: Pregabalin 75 MG Cap PO SCH ×3 (09:29→20:58)
[2023-12-17] MEDS: Pantoprazole 40 MG Vial IVPUSH SCH ×2 (09:29→20:45)
[2023-12-17] MEDS: Saccharomyces Boulardii (Probiotic) 250 MG Cap PO SCH ×2 (09:29→20:59)
[2023-12-17] MEDS: guaiFENesin 600 MG Tab.ER PO SCH ×2 (09:30→20:59)
[2023-12-17] MEDS: Simethicone 80 MG Tab.Chew PO SCH ×4 (09:30→20:59)
[2023-12-17] MEDS: Bisacodyl 10 MG Supp RECTAL SCH (09:38)
[2023-12-17] MEDS: Sodium Chloride 0.9% 10 ML Syringe FLUSH SCH ×2 (09:38→20:44)
[2023-12-17] MEDS: Diclofenac Sodium 1% Gel 100 GM Tube TOP SCH ×4 (09:40→20:54)
[2023-12-17] MEDS: Fluticasone NASAL Spray 16 GM Bottle NASBOTH SCH (09:45)
[2023-12-17] MEDS ORDERED: Ketorolac 30 MG/ML SDV IVPUSH PRN (11:58)
[2023-12-17] MEDS: Albuterol 0.083% 2.5 MG/3 ML Neb Soln INH SCH (15:56)
[2023-12-18] MEDS: Sodium Chloride 0.9% 10 ML Syringe FLUSH PRN ×2 (05:12)
[2023-12-18] MEDS: Metoclopramide 10 MG/2 ML SDV IVPUSH SCH ×5 (05:12→23:46)
[2023-12-18] MEDS: Piperacillin/Tazobactam 4.5 GM in Sodium Chloride 0.9% 100 ML IV SCH ×3 (05:16→22:05)
[2023-12-18] MEDS: Albuterol 0.083% 2.5 MG/3 ML Neb Soln INH SCH ×4 (06:30→19:53)
[2023-12-18] MEDS: Budesonide 0.5 MG/2 ML Neb Susp INH SCH ×3 (06:30→19:53)
[2023-12-18 07:01] LABS: BASOPHILS PERCENT AUTO 0.3 % (0.0-1.0); EOSINOPHILS PERCENT AUTO 3.5 % (1.0-3.0); HEMATOCRIT 35.7 % (40.0-54.0); HEMOGLOBIN 11.2 g/dL (14.0-18.0); MEAN CORPUSCULAR HEMOGLOBIN 27.5 pg (27.0-34.0); MEAN CORPUSCULAR HGB CONC 31.4 g/dL (33.0-35.0); MEAN CORPUSCULAR VOLUME 87.7 fL (80-100); MONOCYTES PERCENT AUTO 10.4 % (2-8); NEUTROPHILS PERCENT AUTO 74.8 % (42.2-75.2); PLATELET COUNT,PLT 138 10^3/uL (150-450); RED BLOOD CELL COUNT 4.07 10^6/uL (4.6-6.2); WHITE BLOOD CELL COUNT,WBC 6.6 10^3/uL (5.0-10.0)
[2023-12-18 07:20] LABS: ALBUMIN 2.5 g/dL (3.4-5.0); ANION GAP 13.1 mEq/L (7-13); BILIRUBIN TOTAL 0.5 mg/dL (0.2-1.0); BUN/CREATININE RATIO 28.6 (No establ ref range); C-REACTIVE PROTEIN 5.27 ng/dL (<=0.50); CALCIUM 8.2 mg/dL (8.5-10.1); CREATININE 1.19 mg/dL (0.70-1.30); EST CRCL DRUG DOSING (CG) 58.33 mL/min; MAGNESIUM 2.1 mg/dL (1.8-2.4); POTASSIUM,K 4.1 mmol/L (3.5-5.1); PROTEIN TOTAL,TP 5.6 g/dL (6.4-8.2)
[2023-12-18 07:21] LABS: A/G RATIO 0.81
[2023-12-18] MEDS: guaiFENesin 600 MG Tab.ER PO SCH ×2 (08:37→22:01)
[2023-12-18] MEDS: Saccharomyces Boulardii (Probiotic) 250 MG Cap PO SCH ×2 (08:37→22:00)
[2023-12-18] MEDS: Pregabalin 75 MG Cap PO SCH ×3 (08:37→22:00)
[2023-12-18] MEDS: Simethicone 80 MG Tab.Chew PO SCH ×4 (08:37→22:00)
[2023-12-18] MEDS: Pantoprazole 40 MG Vial IVPUSH SCH ×2 (08:38→22:01)
[2023-12-18] MEDS: Fluticasone NASAL Spray 16 GM Bottle NASBOTH SCH (08:46)
[2023-12-18] MEDS: Diclofenac Sodium 1% Gel 100 GM Tube TOP SCH ×4 (08:47→22:14)
[2023-12-18] MEDS: Sodium Chloride 0.9% 10 ML Syringe FLUSH SCH ×2 (14:44→22:01)
[2023-12-19] MEDS: Metoclopramide 10 MG/2 ML SDV IVPUSH SCH ×2 (05:31→13:28)
[2023-12-19] MEDS: Sodium Chloride 0.9% 10 ML Syringe FLUSH PRN (05:31)
[2023-12-19] MEDS: Piperacillin/Tazobactam 4.5 GM in Sodium Chloride 0.9% 100 ML IV SCH ×2 (05:35→13:28)
[2023-12-19] MEDS: Albuterol 0.083% 2.5 MG/3 ML Neb Soln INH SCH ×3 (06:11→14:36)
[2023-12-19] MEDS: Budesonide 0.5 MG/2 ML Neb Susp INH SCH (06:11)
[2023-12-19 06:28] LABS: BASOPHILS PERCENT AUTO 0.3 % (0.0-1.0); EOSINOPHILS PERCENT AUTO 6.2 % (1.0-3.0); HEMATOCRIT 36.7 % (40.0-54.0); HEMOGLOBIN 11.7 g/dL (14.0-18.0); LYMPHOCYTES PERCENT AUTO 9.2 % (20.5-50.1); MEAN CORPUSCULAR HEMOGLOBIN 27.8 pg (27.0-34.0); MEAN CORPUSCULAR HGB CONC 31.9 g/dL (33.0-35.0); MEAN CORPUSCULAR VOLUME 87.2 fL (80-100); MONOCYTES PERCENT AUTO 10.6 % (2-8); NEUTROPHILS PERCENT AUTO 73.7 % (42.2-75.2); PLATELET COUNT,PLT 138 10^3/uL (150-450); RED BLOOD CELL COUNT 4.21 10^6/uL (4.6-6.2); WHITE BLOOD CELL COUNT,WBC 6.3 10^3/uL (5.0-10.0)
[2023-12-19 06:58] LABS: ALBUMIN 2.3 g/dL (3.4-5.0); ANION GAP 12.1 mEq/L (7-13); BILIRUBIN TOTAL 0.5 mg/dL (0.2-1.0); BUN/CREATININE RATIO 19.8 (No establ ref range); C-REACTIVE PROTEIN 2.86 ng/dL (<=0.50); CREATININE 1.06 mg/dL (0.70-1.30); EST CRCL DRUG DOSING (CG) 65.49 mL/min; MAGNESIUM 1.8 mg/dL (1.8-2.4); POTASSIUM,K 4.1 mmol/L (3.5-5.1); PROTEIN TOTAL,TP 5.3 g/dL (6.4-8.2)
[2023-12-19 06:59] LABS: A/G RATIO 0.77
[2023-12-19 08:09] VITALS: BP 90/66; PULSE 82
[2023-12-19] MEDS: Simethicone 80 MG Tab.Chew PO SCH ×2 (09:33→13:28)
[2023-12-19] MEDS: Saccharomyces Boulardii (Probiotic) 250 MG Cap PO SCH (09:33)
[2023-12-19] MEDS: Pregabalin 75 MG Cap PO SCH ×2 (09:33→13:28)
[2023-12-19] MEDS: guaiFENesin 600 MG Tab.ER PO SCH (09:33)
[2023-12-19] MEDS: Diclofenac Sodium 1% Gel 100 GM Tube TOP SCH ×3 (09:35→19:36)
[2023-12-19] MEDS: Fluticasone NASAL Spray 16 GM Bottle NASBOTH SCH (09:35)
[2023-12-19] MEDS: Sodium Chloride 0.9% 10 ML Syringe FLUSH SCH (09:36)
[2023-12-19] MEDS: Pantoprazole 40 MG Vial IVPUSH SCH (09:36)
== END 2023-12-19 13:50 | disposition other institution (70) | DRG 871 ==
LOC: DL.ED 11:47 → DL.MS 13:18 → OBSVTOIN 12-17 11:54
PROVIDERS: ADMIT Internal Medicine; ATTEND Internal Medicine
PROC: 0D9670Z Drainage of Stomach with Drainage Device, Via Natural or Artificial Opening (ICD-10-PCS; principal; 2023-12-17)
PROC: 3E03329 Introduction of Other Anti-infective into Peripheral Vein, Percutaneous Approach (ICD-10-PCS; 2023-12-17)
DX: A41.9 Sepsis, unspecified organism (principal); J18.9 Pneumonia, unspecified organism; J96.12 Chronic respiratory failure with hypercapnia; K56.609 Unspecified intestinal obstruction, unspecified as to partial versus complete obstruction; I10 Essential (primary) hypertension; Z88.1 Allergy status to other antibiotic agents; K59.09 Other constipation; K21.9 Gastro-esophageal reflux disease without esophagitis; Z66 Do not resuscitate; G62.9 Polyneuropathy, unspecified; F71 Moderate intellectual disabilities; F32.A Depression, unspecified; K59.81 Ogilvie syndrome; E11.65 Type 2 diabetes mellitus with hyperglycemia; E11.42 Type 2 diabetes mellitus with diabetic polyneuropathy; R33.9 Retention of urine, unspecified; Z99.81 Dependence on supplemental oxygen; Z88.8 Allergy status to other drugs, medicaments and biological substances; Z79.899 Other long term (current) drug therapy; Z79.51 Long term (current) use of inhaled steroids; Z86.16 Personal history of COVID-19; Z11.52 Encounter for screening for COVID-19
CPT/HCPCS: 0240U; 36415; 51701; 51702; 71045; 71046; 74018; 80053; 80202; 83605; 83735; 85025; 85379; 86140; 87040; 93005; 93010; 94010; 94060; 94640; 94667; 94668; 94760; 99284; 99285; 96361; 96365; 96366; 96367; 96368; 96375; 96376; A9270-GY; C9113; G0378; J1100; J1170; J1885; J1956; J2543; J2765; J3370; J3490; J7030; J7050; J7120; J7613-GY; J7620-GY

== ENCOUNTER 2024-03-26 23:12 | Emergency (ER) | payer MEDICARE, MEDICAID ==
[2024-03-26] MEDS: Sodium Chloride 0.9% 10 ML Syringe FLUSH PRN (23:35)
[2024-03-26 23:43] LABS: BASOPHILS PERCENT AUTO 0.3 % (0.0-1.0); EOSINOPHILS PERCENT AUTO 0.3 % (1.0-3.0); HEMATOCRIT 52.9 % (40.0-54.0); LYMPHOCYTES PERCENT AUTO 4.6 % (20.5-50.1); MEAN CORPUSCULAR HEMOGLOBIN 26.9 pg (27.0-34.0); MEAN CORPUSCULAR HGB CONC 32.1 g/dL (33.0-35.0); MEAN CORPUSCULAR VOLUME 83.6 fL (80-100); NEUTROPHILS PERCENT AUTO 89.8 % (42.2-75.2); PLATELET COUNT,PLT 264 10^3/uL (150-450); RED BLOOD CELL COUNT 6.33 10^6/uL (4.6-6.2); WHITE BLOOD CELL COUNT,WBC 17.8 10^3/uL (5.0-10.0)
[2024-03-26] MEDS: Iopamidol 612 MG/ML 100 ML Bottle IVPUSH ONE (23:50)
[2024-03-26 23:53] LABS: A/G RATIO 0.9; ALANINE AMINOTRANSFERASE,ALT 33 U/L (16-63); ALBUMIN 4.9 g/dL (3.4-5.0); ALKALINE PHOSPHATASE 155 U/L (46-116); ANION GAP 19.8 mEq/L (7-13); ASPARTATE AMNIOTRANSFERASE,AST 27 U/L (15-37); BILIRUBIN TOTAL 0.4 mg/dL (0.2-1.0); BLOOD UREA NITROGEN,BUN 40 mg/dL (7-18); BUN/CREATININE RATIO 20.4 (No establ ref range); CALCIUM 10.5 mg/dL (8.5-10.1); CARBON DIOXIDE,CO2 25 mmol/L (21-32); CHLORIDE,CL 99 mmol/L (98-107); CREATININE 1.96 mg/dL (0.70-1.30); GLUCOSE RANDOM 187 mg/dL (70-99); LIPASE 80 U/L (16-77); PHOSPHORUS 5.9 mg/dL (2.6-4.7); POTASSIUM,K 4.8 mmol/L (3.5-5.1); PROTEIN TOTAL,TP 10.3 g/dL (6.4-8.2); SODIUM,NA 139 mmol/L (136-145)
[2024-03-26 23:57] LABS: ESTIMATED GFR 37 mL/min (>=60); LACTIC ACID 3.5 mmol/L (0.4-2.0)
[2024-03-27 00:12] LABS: B-TYPE NATRIURETIC PEPTIDE,BNP 32 pg/ml (0-100)
[2024-03-27] MEDS ORDERED: cefTRIAXone 1 GM in Sodium Chloride 0.9% 100 ML IV ONE (00:14)
[2024-03-27] MEDS ORDERED: VANCOMYCIN IV ONE (00:14)
[2024-03-27] MEDS ORDERED: WATER IV ONE (00:14)
[2024-03-27] MEDS ORDERED: Sodium Chloride 0.9% 10 ML Syringe FLUSH PRN (00:14)
[2024-03-27] MEDS ORDERED: DEXTROSE 5% IV ONE (00:14)
[2024-03-27] MEDS ORDERED: Piperacillin/Tazobactam 3.375 GM in Sodium Chloride 0.9% 100 ML IV ONE (00:18)
[2024-03-27] MEDS: Lactated Ringers 1,000 ML IV SCH (00:32)
[2024-03-27] MEDS: Piperacillin/Tazobactam 4.5 GM in Sodium Chloride 0.9% 100 ML IV ONE (00:33)
[2024-03-27 00:55] LABS: APPEARANCE,URINE SLIGHTLY CLOUDY (CLEAR); BILIRUBIN,URINE SMALL (NEGATIVE); COLOR,URINE YELLOW (YELLOW); GLUCOSE,URINE NEGATIVE (NEGATIVE); KETONES,URINE 15 (NEGATIVE); LEUKOCYTE ESTERASE,URINE SMALL (NEGATIVE); NITRITE,URINE POSITIVE (NEGATIVE); OCCULT BLOOD,URINE LARGE (NEGATIVE); PROTEIN,URINE >=300 (NEGATIVE)
[2024-03-27 01:01] VITALS: BP 112/89; PULSE 103
[2024-03-27 01:04] LABS: WBC,URINE 40-50 /HPF (0-5/HPF)
[2024-03-27 01:05] LABS: AMORPHOUS SEDIMENT,URINE FEW /HPF (NOT SEEN); BACTERIA,URINE MODERATE /HPF (0-FEW/HPF); EPITHELIAL CELLS,URINE FEW /HPF (NOT SEEN); MUCUS,URINE FEW /LPF (NOT SEEN)
[2024-03-27 01:15] LABS: CORONAVIRUS COVID-19 NAA NEGATIVE (NEGATIVE); INFLUENZA A NAA NEGATIVE (NEGATIVE); INFLUENZA B NAA NEGATIVE (NEGATIVE); RESPIRATORY SYNCYTIAL VIR NAA NEGATIVE (NEGATIVE)
== END 2024-03-27 02:36 ==
LOC: DL.ED 23:12
DX: A41.9 Sepsis, unspecified organism (principal); R65.21 Severe sepsis with septic shock; J96.21 Acute and chronic respiratory failure with hypoxia; K56.609 Unspecified intestinal obstruction, unspecified as to partial versus complete obstruction; G93.41 Metabolic encephalopathy; E87.20 Acidosis, unspecified; E83.39 Other disorders of phosphorus metabolism; N17.9 Acute kidney failure, unspecified; D72.829 Elevated white blood cell count, unspecified; I10 Essential (primary) hypertension; K21.9 Gastro-esophageal reflux disease without esophagitis; Z86.16 Personal history of COVID-19; Z79.899 Other long term (current) drug therapy; Z88.1 Allergy status to other antibiotic agents
CPT/HCPCS: 0241U; 36415; 43752; 71045; 71260; 74177; 80053; 81001; 82140; 83605; 83690; 83880; 84100; 85025; 87040; 87086; 87088; 87186; 96361; 96365; 96366; 96368; 99285; J2543; J3370; J3490; J7050; J7120; Q9967